=== PATIENT | male | born 1980 | race Caucasian/White ===

== ENCOUNTER 2018-09-29 13:57 | Emergency (ER) | payer OTHER ==
--- NOTE | 2018-09-29 14:37 | UC ---
Respiratory Complaint HPI - HPI Summary HPI Summary: Patient presents to urgent care with ongoing cough for approximately 5 weeks. Patient states last week he saw his primary care doctor was diagnosed with "walking pneumonia" and placed on a Z-Leonard. Patient states he finished this on Friday but does not feel any better. Patient states he continues to have sore throat, congestion, postnasal drip, and coarse cough. Pt with sinus pressure andPatient states his cough is productive but he swallows the sputum and does not know the color. 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 Patient denies any myalgias or arthralgias. No rash. Patient has not taken any tady-kgu-frxezah medication. Patient's concerned because he doesn't feel any better and thought he would feel much better following the Zithromax. Patient's medications reviewed this visit. Patient is not immunocompromised. - History of Current Complaint Stated Complaint: COUGH CHEST CONGESTION Time Seen by Provider: 09/29/18 14:36 Hx Obtained From: Patient - Allergies/Home Medications Allergies/Adverse Reactions: Allergies Allergy/AdvReac Type Severity Reaction Status Date / Time No Known Allergies Allergy Verified 09/29/18 14:51 PMH/Surg Hx/FS Hx/Imm Hx Previously Healthy: Yes - Surgical History Surgical History: None - Family History Known Family History: Positive: Non-Contributory - Social History Occupation: Employed Full-time - farming Alcohol Use: Rare Substance Use Type: None Smoking Status (MU): Never Smoked Tobacco Review of Systems All Other Systems Reviewed And Are Negative: Yes Constitutional: Positive: Fatigue Skin: Positive: Negative ENT: Positive: Sore Throat, Nasal Discharge, Sinus Congestion Respiratory: Positive: Cough Cardiovascular: Positive: Negative Gastrointestinal: Positive: Negative Genitourinary: Positive: Negative Physical Exam - Summary Physical Exam Summary: Vital Signs Reviewed: Yes A+Ox3, persistent coarse cough Eyes: Conjunctiva Clear, TORSTEN. EOM intact and full ENT: Hearing grossly normal TM x 2 clear, turbinates inflammed and boggy, + TTP turbinate Max R>L, +PND, +mmoist, uvula midline, no exudate, no erythema Neck: Positive: Supple Respiratory: Positive: No respiratory distress, No accessory muscle use + diffuse exp wheeze, no rhonchi coarse, persistent cough Cardiovascular: RRR nl s1, s2 no m/r CBT <2 sec abd soft + BS nt/nd no guarding, no distension Musculoskeletal Exam: NICE x 4 without difficulty Strength Intact, ROM Intact Neurological: Positive: Alert, + sensation throughout Psychological: Positive: Normal Response To Family Skin: Positive: no rash, no ecchymosis Triage Information Reviewed: Yes UC Diagnostic Evaluation - Radiology Radiology Interpretation Completed By: Radiologist - Patient Name: KEVIN SANTOS Medical Record#: [id number] Re-Evaluation - Re-Evaluation First Eval Re-Evaluation Time: 15:40 Change: Improved Comment: Pt improved following neb - coughing improved. Reviewed CXR. Will Rx Amox for progressive sinusitis. pt declined prednisone. declined tussionex. hydrate. motrin/apap. OTC cough/cold. PCP f/u Respiratory Course/Dx - Course Course Of Treatment: Patient presents with ongoing coarse cough. Patient with coarse of Zithromax to treat presumed pneumonia. Patient states he is no better. Patient has not taken any other medications to treat his symptoms. On exam vital signs are stable. Patient does have a persistent coarse cough. Patient does have an x-ray diffuse wheeze. We'll get a chest x-ray DuoNeb and reassessed. Patient comfortable in agreement with plan. - Differential Dx/Diagnosis Provider Diagnosis: Bronchitis, Rhinosinusitis Discharge - Sign-Out/Discharge Documenting (check all that apply): Patient Departure All imaging exams completed and their final reports reviewed: Yes - Discharge Plan Condition: Stable Disposition: HOME Prescriptions: Albuterol HFA INHALER* [Ventolin HFA Inhaler*] 2 puff INH Q4H PRN #1 mdi PRN Reason: wheeze Amoxicillin PO (*) [Amoxicillin 875 MG (*)] 875 mg PO BID #20 tab Patient Education Materials: Acute Bronchitis (ED) Referrals: Prem Thompson MD [Primary Care Provider] - Additional Instructions: -Take antibiotics exactly as prescribed until gone -Use your albuterol puffer - 2 puffs every 4 hours for the next 2 days - then as needed -Stay well hydrated - avoid excess caffeine and all alcohol - eat regular, healthy meals - - humidify the air in the room where you sleep - boil water, run a hot steam shower, vaporizer, cups of water by heat register - okay to take over the counter decongestant and cough medication -- These infections are spread by secretions - do NOT share eating or drinking utensils - clean items you share with other people such as cell phones, computer mouse, TV remote, computer tablets,etc.. Once you have been antibiotics for 2 days, change your toothbrush and your pillowcase. -Contact your doctor to arrange a follow-up appointment this week. Call your doctor, return here or go to the emergency department with any questions or concerns - Billing Disposition and Condition Condition: STABLE Disposition: Home
[2018-09-29 14:52] VITALS: BP 118/80
[2018-09-29] MEDS ORDERED: Albuterol/Ipratropium NEB.SOL* Albuterol 2.5 MG/Ipratropium 0.5 MG 3 ML INH ONE (15:04)
== END 2018-09-29 16:00 | disposition home or self-care (01) ==
LOC: UCEAST 13:57
DX: J40 Bronchitis, not specified as acute or chronic (principal); J32.9 Chronic sinusitis, unspecified
CPT/HCPCS: 71046; 99212; A9270-GY; G0463